=== PATIENT | male | born 1985 | race African-American/Black ===

== ENCOUNTER 2019-03-28 20:33 | Emergency (ER) | payer OTHER ==
[2019-03-28] MEDS ORDERED: LIDOCAINE 0.5%/EPINEPHRINE INJ 50 ML VIAL INJ ONE (21:49)
[2019-03-28] MEDS ORDERED: HYDROCODONE/ACETAMINOPHEN 5-325 MG TABLET PO ONE (21:49)
--- NOTE | 2019-03-28 21:50 | ER Document Report ---
ED Medical Screen (RME) - General Chief Complaint: Abscess Stated Complaint: NECK PAIN Time Seen by Provider: 03/28/19 21:48 Notes: Patient is a 33-year-old -[place] male with no significant past medical history presents to the emergency department with chief complaint of swollen painful lump to the back of the left side of the neck. States is been ongoing for approximately 4 days. States he has been squeezing the area and expressing purulence intermittently. States it continues to worsen so he came for evaluation. Denies any fever, nausea vomiting, diarrhea, chills or night sweats. I have treated and performed a rapid initial assessment of this patient. A comprehensive ED assessment and evaluation of the patient, analysis of test results and completion of medical decision making process will be conducted by additional ED providers. PHYSICAL EXAMINATION: GENERAL: Well-appearing, well-nourished and in no acute distress. A&Ox4. Answers questions appropriately. TRAVEL OUTSIDE OF THE [place] IN LAST 30 DAYS: No - Related Data Allergies/Adverse Reactions: No Known Allergies Allergy (Unverified 03/28/19 21:36) Past Medical History - Social History Frequency of alcohol use: None Drug Abuse: None Physical Exam - Vital signs Vitals: Temp Pulse Resp BP Pulse Ox 99.6 F 70 20 184/97 H 98 03/28/19 20:49 03/28/19 20:49 03/28/19 20:49 03/28/19 20:49 03/28/19 20:49 Course - Vital Signs Vital signs: Temp Pulse Resp BP Pulse Ox 99.6 F 70 20 184/97 H 98 03/28/19 20:49 03/28/19 20:49 03/28/19 20:49 03/28/19 20:49 03/28/19 20:49
[2019-03-29] MEDS ORDERED: HYDROCODONE/ACETAMINOPHEN 5-325 MG TABLET PO ONE (02:13)
[2019-03-29] MEDS ORDERED: LIDOCAINE 1%/EPINEPHRINE INJ 20 ML VIAL ONE (02:16)
--- NOTE | 2019-03-29 02:18 | ER Document Report ---
ED Skin Rash/Insect Bite/Abscs - General Chief Complaint: Abscess Stated Complaint: NECK PAIN Time Seen by Provider: 03/28/19 21:48 Primary Care Provider: CINTIA EDGE MD [ACTIVE STAFF] - Follow up as needed Notes: CHIEF COMPLAINT: Abscess left neck HPI: 33-year-old male presenting to the emergency department complaining of a tender swollen area that is been draining purulent material in the left posterior neck for the last 4 days. No history of skin abscesses previously. Denies fevers. Denies difficulty swallowing ROS: See HPI - all other systems were reviewed and are otherwise negative Constitutional: no fever ENT: no runny nose, no sore throat Integumentary: Positive abscess Allergy: no hives MEDICATIONS: I agree with the patient medications as charted by the RN. ALLERGIES: I agree with the allergies as charted by the RN. PAST MEDICAL HISTORY/PAST SURGICAL HISTORY: Reviewed and agree as charted by RN. SOCIAL HISTORY: Reviewed and agree as charted by RN. FAMILY HISTORY: No significant familial comorbid conditions directly related to patient complaint EXAM: Reviewed vital signs as charted by RN. CONSTITUTIONAL: Alert and oriented and responds appropriately to questions. Well-appearing; well-nourished, mild distress secondary to discomfort HEAD: Normocephalic; atraumatic EYES: PERRL; Conjunctivae clear, sclerae non-icteric ENT: normal nose; no rhinorrhea; moist mucous membranes; pharynx without lesions noted, no uvula edema or deviation, no tonsillar hypertrophy, phonation normal. NECK: Supple without meningismus; no cervical lymphadenopathy, there is a raised indurated area with a small pinhole opening measuring 3 cm x 2 cm in the posterior aspect of the left neck, does not involve the anterior triangle. CARD: symmetric distal pulses RESP: Normal chest excursion without splinting or tachypnea ABD/GI: non-distended BACK: The back appears normal EXT: Normal ROM in all joints; no cyanosis, no effusions, no edema SKIN: Normal color for age and race; warm; dry; good turgor NEURO: Moves all extremities equally; Motor and sensory function intact PSYCH: The patient's mood and manner are appropriate. Grooming and personal hygiene are appropriate. MDM: 33-year-old male with an abscess to the left posterior neck that requires incision and drainage. TRAVEL OUTSIDE OF THE [place] IN LAST 30 DAYS: No - Related Data Allergies/Adverse Reactions: No Known Allergies Allergy (Unverified 03/28/19 21:36) Past Medical History - Social History Smoking Status: Former Smoker Frequency of alcohol use: None Drug Abuse: None Family History: Reviewed & Not Pertinent Patient has suicidal ideation: No Patient has homicidal ideation: No Physical Exam - Vital signs Vitals: Temp Pulse Resp BP Pulse Ox 99.6 F 70 20 184/97 H 98 03/28/19 20:49 03/28/19 20:49 03/28/19 20:49 03/28/19 20:49 03/28/19 20:49 Course - Vital Signs Vital signs: Temp Pulse Resp BP Pulse Ox 99.8 F 87 20 180/95 H 100 03/29/19 01:10 03/29/19 01:10 03/29/19 01:10 03/29/19 01:10 03/29/19 01:10 Procedures - Incision and Drainage Left Lateral Neck Time completed: 02:51 Type: Simple Anesthetic type: 1% Lidocaine w/epi mL's of anesthetic: 1 Blade size: 11 I&D procedure: Chlorprep applied, Iodoform packing placed, Sterile dressing applied Incision Method: Incision made by scalpel Amount/type of drainage: 2 purulent Discharge - Discharge Clinical Impression: Abscess, neck Condition: Stable Disposition: HOME, SELF-CARE Additional Instructions: 1. packing out in 2-3 days 2. follow up with your primary care provider for further evaluation in 2-3 days 3. medicines as prescribed, take Tylenol or Motrin for pain 4. return sooner for any worsening condition, increasing redness or onset of fever 5. apply warm compresses to the wound area 2-3 times daily Prescriptions: Hydrocodone/Acetaminophen [Graham 5-325 mg Tablet] 1 tab PO Q4 PRN #10 tablet PRN Reason: Diclofenac Sodium [Voltaren 50 Mg Tablet.] 50 mg PO BID #20 tablet. Referrals: CINTIA EDGE MD [ACTIVE STAFF] - Follow up as needed
[2019-03-29 02:59] VITALS: BP 168/105
== END 2019-03-29 03:03 | disposition home or self-care (01) ==
LOC: ER 20:33
DX: L02.11 Cutaneous abscess of neck (principal); Z87.891 Personal history of nicotine dependence
CPT/HCPCS: 99283; 10060; J3490